=== PATIENT | male | born 1995 | race Caucasian/White ===

== ENCOUNTER 2019-03-30 21:11 | Emergency (ER) | payer SELFPAY ==
[2019-03-30] MEDS ORDERED: 0.9 % SODIUM CHLORIDE 1,000 ML IV ONE ×2 (21:29)
[2019-03-30] MEDS ORDERED: FAMOTIDINE 20 MG TABLET ONE (21:36)
[2019-03-30] MEDS ORDERED: LORATADINE 10 MG TABLET PO ONE (21:37)
--- NOTE | 2019-03-30 21:58 | ED Physician Documentation ---
General Adult - HISTORIAN Historian: patient, other (PD) - HPI Chief Complaint: General Adult Further Comments: yes (24 year old male patient brought in by [facility] for fit for confinement. Patient is intoxicated. Was picked up on a domestic dispute issue at home. States he has drank 2 fifths of whiskey tonight.) - ROS CONST: no problems EYES/ENT: none CVS/RESP: none GI/: none MS/SKIN/LYMPH: none NEURO/PSYCH: denies: headache, fainting, dizziness, tingling, numbness, difficulty walking, difficulty with speech, anxiety, depression, other - PAST HX Past History: none Other History: none Allergies/Adverse Reactions: Allergies Allergy/AdvReac Type Severity Reaction Status Date / Time amoxicillin Allergy Hives Verified 03/30/19 22:05 peanut Allergy Hives Verified 03/30/19 22:05 Home Medications: Ambulatory Orders Medication Instructions Recorded NK 03/30/19 - SOCIAL HX Smoking History: cigarettes Alcohol Use: heavy Drug Use: denies: none (denies) - FAMILY HX Family History: No - REVIEWED ASSESSMENTS Nursing Assessment Reviewed: Yes Vitals Reviewed: Yes Progress - Progress Progress: Patient agrees to examination and treatment. 2L NS given in ER. Patient discharge with [facility]. Refused UA/UDS test. ED Results Lab/Radiology - Orders Orders: ED Orders Category Date Time Status ALCOHOL MEDICAL USE ONLY Stat Lab 03/30/19 21:41 Received CBC/PLATELET/DIFF Stat Lab 03/30/19 21:40 Received CMP Stat Lab 03/30/19 21:41 Received 0.9 % Sodium Chloride [Normal Saline] 1,000 ml Med 03/30/19 21:29 Discontinued IV NOW 0.9 % Sodium Chloride [Normal Saline] 1,000 ml Med 03/30/19 21:29 Discontinued IV NOW Famotidine [Pepcid] Med 03/30/19 21:36 Discontinued 20 mg .ROUTE .STK-MED ONE Loratadine [Claritin] Med 03/30/19 21:37 Discontinued 10 mg PO .STK-MED ONE General Adult Physical Exam - PHYSICAL EXAM GENERAL APPEARANCE: intoxicated; strong odor of ETOH EENT: CORWIN, nystagmus CVS: reg rate & rhythm, heart sounds normal, equal pulses, no murmur, no gallop, PMI nml, no JVD, no friction rub, 24 ABDOMEN: soft, no organomegaly, normal bowel sounds, no abdominal bruit, no distension BACK: normal inspection, no CVA tenderness SKIN: warm/dry, normal color, other (abrasion on forehead) NEURO: oriented X3, motor nml, other (intoxicated ) Discharge Clincal Impression: Intoxication, Fit for confinement Referrals: Primary Doctor,No [Primary Care Provider] - 2 Days Condition: Stable Disposition: 01 HOME, SELF-CARE Decision to Admit: NO Decision Time: 21:57
[2019-03-30 22:14] VITALS: BP 152/87
[2019-03-31 06:54] LABS: BASOPHILS % 0.9 % (0.0-1.5); NEUTROPHILS # 3.8 # k/uL (1.4-7.7)
[2019-03-31 06:55] LABS: eGFR (Non-African) > 60
== END 2019-03-30 22:10 | disposition home or self-care (01) ==
LOC: ED 21:11
DX: Z02.89 Encounter for other administrative examinations (principal); F10.929 Alcohol use, unspecified with intoxication, unspecified; Y90.9 Presence of alcohol in blood, level not specified
CPT/HCPCS: 36415; 80053; 80320; 85025; 99282; 99283; J7030; G0480; S1016